=== PATIENT | female | born 2000 | race Caucasian/White ===

== ENCOUNTER 2021-09-13 11:05 | Emergency (ER) | payer SELFPAY | END 2021-09-13 13:19 | disposition home or self-care (01) | LOC: JD.ED 11:05 | DX: R42 Dizziness and giddiness (principal); T50.905A Adverse effect of unspecified drugs, medicaments and biological substances, initial encounter; Z88.0 Allergy status to penicillin; Z91.030 Bee allergy status | CPT/HCPCS: 99283 ==

== ENCOUNTER 2021-09-15 07:52 | Emergency (ER) | payer SELFPAY | END 2021-09-15 11:06 | disposition home or self-care (01) | LOC: JD.ED 07:52 | DX: R11.2 Nausea with vomiting, unspecified (principal); E66.9 Obesity, unspecified; Z68.34 Body mass index [BMI] 34.0-34.9, adult; Z88.0 Allergy status to penicillin; Z91.030 Bee allergy status | CPT/HCPCS: 36415; 80053; 83690; 85025; 99283; 99284 ==

== ENCOUNTER 2021-09-15 18:01 | Emergency (ER) | payer SELFPAY | END 2021-09-15 20:20 | disposition home or self-care (01) | LOC: JD.ED 18:01 | DX: R11.2 Nausea with vomiting, unspecified (principal); E66.9 Obesity, unspecified; Z68.34 Body mass index [BMI] 34.0-34.9, adult; Z88.0 Allergy status to penicillin; Z91.030 Bee allergy status | CPT/HCPCS: 36415; 84702; 99283 ==

== ENCOUNTER 2021-09-23 08:03 | Emergency (ER) | payer SELFPAY | END 2021-09-23 08:33 | disposition home or self-care (01) | LOC: JD.ED 08:03 | DX: G56.02 Carpal tunnel syndrome, left upper limb (principal); E66.9 Obesity, unspecified; Z88.0 Allergy status to penicillin; Z91.030 Bee allergy status; Z68.33 Body mass index [BMI] 33.0-33.9, adult | CPT/HCPCS: 99282; 99283 ==

== ENCOUNTER 2021-10-19 17:34 | Emergency (ER) | payer SELFPAY ==
[2021-10-19] MEDS ORDERED: Sodium Chloride 0.9% 10 ML Syringe FLUSH PRN (18:03)
== END 2021-10-19 20:36 | disposition home or self-care (01) ==
LOC: JD.ED 17:34
DX: O20.0 Threatened abortion (principal); J45.909 Unspecified asthma, uncomplicated; E66.9 Obesity, unspecified; Z68.34 Body mass index [BMI] 34.0-34.9, adult; Z3A.01 Less than 8 weeks gestation of pregnancy; Z86.16 Personal history of COVID-19; Z88.0 Allergy status to penicillin; Z91.030 Bee allergy status
CPT/HCPCS: 76817; 76817-26; 99283; 99284-25

== ENCOUNTER 2021-10-20 13:19 | Emergency (ER) | payer SELFPAY | END 2021-10-20 16:55 | disposition home or self-care (01) | LOC: JD.ED 13:19 → SUPCPDRO 13:19 → JD.ED 16:55 | DX: O03.9 Complete or unspecified spontaneous abortion without complication (principal); E66.9 Obesity, unspecified; Z68.34 Body mass index [BMI] 34.0-34.9, adult; Z88.0 Allergy status to penicillin; Z91.030 Bee allergy status; Z86.16 Personal history of COVID-19 | CPT/HCPCS: 36415; 84702; 85025; 86900; 86901; 99284 ==

== ENCOUNTER 2021-11-02 22:45 | Emergency (ER) | payer SELFPAY | END 2021-11-02 23:33 | LOC: JD.ED 22:45 | DX: Z53.21 Procedure and treatment not carried out due to patient leaving prior to being seen by health care provider (principal) ==

== ENCOUNTER 2021-11-06 19:32 | Emergency (ER) | payer SELFPAY ==
[2021-11-06] MEDS ORDERED: LORazepam 0.5 MG Tab PO ONE (19:58)
== END 2021-11-06 21:41 | disposition home or self-care (01) ==
LOC: JD.ED 19:32
DX: F41.0 Panic disorder [episodic paroxysmal anxiety] (principal); F43.12 Post-traumatic stress disorder, chronic; J45.909 Unspecified asthma, uncomplicated; E66.9 Obesity, unspecified; Z68.34 Body mass index [BMI] 34.0-34.9, adult; Z86.16 Personal history of COVID-19; Z79.899 Other long term (current) drug therapy; Z88.0 Allergy status to penicillin; Z91.030 Bee allergy status
CPT/HCPCS: 99283; A9270; 99282

== ENCOUNTER 2021-11-19 16:01 | Emergency (ER) | payer SELFPAY ==
[2021-11-19] MEDS ORDERED: Acetaminophen 325 MG Tab PO ONE (16:57)
== END 2021-11-19 18:17 | disposition home or self-care (01) ==
LOC: JD.ED 16:01
DX: S99.911A Unspecified injury of right ankle, initial encounter (principal); J45.909 Unspecified asthma, uncomplicated; F17.210 Nicotine dependence, cigarettes, uncomplicated; E66.9 Obesity, unspecified; Z68.34 Body mass index [BMI] 34.0-34.9, adult; Z86.16 Personal history of COVID-19; Z79.899 Other long term (current) drug therapy; Z91.030 Bee allergy status; Z88.0 Allergy status to penicillin
CPT/HCPCS: 73610; 73630; 87651; 99283; A9270

== ENCOUNTER 2021-11-20 10:18 | Emergency (ER) | payer SELFPAY ==
[2021-11-20] MEDS ORDERED: Albuterol 6.7 GM Inhaler INH ONE (10:31)
== END 2021-11-20 12:07 | disposition home or self-care (01) ==
LOC: JD.ED 10:18
DX: U07.1 COVID-19 (principal); J40 Bronchitis, not specified as acute or chronic; E66.9 Obesity, unspecified; Z68.36 Body mass index [BMI] 36.0-36.9, adult; Z88.0 Allergy status to penicillin; Z91.030 Bee allergy status
CPT/HCPCS: 71045; 94640; 99283; A9270

== ENCOUNTER 2021-11-20 20:43 | Emergency (ER) | payer SELFPAY ==
[2021-11-20] MEDS ORDERED: Ondansetron 4 MG Tab.DIS PO ONE (21:25)
== END 2021-11-20 21:40 | disposition home or self-care (01) ==
LOC: JD.ED 20:43
DX: U07.1 COVID-19 (principal); R11.2 Nausea with vomiting, unspecified; J45.909 Unspecified asthma, uncomplicated; E66.9 Obesity, unspecified; Z68.30 Body mass index [BMI] 30.0-30.9, adult; Z87.891 Personal history of nicotine dependence; Z79.899 Other long term (current) drug therapy; Z88.0 Allergy status to penicillin; Z91.030 Bee allergy status; Z86.16 Personal history of COVID-19
CPT/HCPCS: 99283; A9270

== ENCOUNTER 2021-11-21 17:09 | Emergency (ER) | payer SELFPAY ==
[2021-11-21] MEDS ORDERED: Codeine/Promethazine 10-6.25 MG/5 ML Syrup 5 ML UD Cup PO ONE (17:57)
== END 2021-11-21 18:53 | disposition home or self-care (01) ==
LOC: JD.ED 17:09
DX: U07.1 COVID-19 (principal); E66.9 Obesity, unspecified; Z68.33 Body mass index [BMI] 33.0-33.9, adult; Z88.0 Allergy status to penicillin; Z91.030 Bee allergy status; Z86.16 Personal history of COVID-19
CPT/HCPCS: 71045; 99283; A9270; 99284

== ENCOUNTER 2021-12-18 17:53 | Emergency (ER) | payer MEDICAID | END 2021-12-18 19:22 | disposition home or self-care (01) | LOC: JD.ED 17:53 | DX: S93.402A Sprain of unspecified ligament of left ankle, initial encounter (principal); E66.9 Obesity, unspecified; Z68.30 Body mass index [BMI] 30.0-30.9, adult; Z88.0 Allergy status to penicillin; Z91.030 Bee allergy status; Z86.16 Personal history of COVID-19; Z87.891 Personal history of nicotine dependence | CPT/HCPCS: 99283 ==

== ENCOUNTER 2022-01-30 10:43 | Emergency (ER) | payer MEDICAID ==
[2022-01-30 12:23] LABS: ESTIMATED GFR 92 mL/min (>60)
== END 2022-01-30 12:50 | disposition home or self-care (01) ==
LOC: JD.ED 10:43
DX: R07.89 Other chest pain (principal); J45.909 Unspecified asthma, uncomplicated; E66.9 Obesity, unspecified; Z68.30 Body mass index [BMI] 30.0-30.9, adult; Z88.1 Allergy status to other antibiotic agents; Z91.030 Bee allergy status; Z91.018 Allergy to other foods; Z79.899 Other long term (current) drug therapy; Z86.16 Personal history of COVID-19; Z20.822 Contact with and (suspected) exposure to COVID-19
CPT/HCPCS: 36415; 80053; 84484; 84703; 85025; 85379; 93005; 93010; 99284; 99285; U0002

== ENCOUNTER 2022-02-04 21:47 | Emergency (ER) | payer MEDICAID | END 2022-02-05 03:30 | disposition home or self-care (01) | LOC: JD.ED 21:47 | DX: H93.13 Tinnitus, bilateral (principal); J45.909 Unspecified asthma, uncomplicated; E66.9 Obesity, unspecified; Z68.30 Body mass index [BMI] 30.0-30.9, adult; Z88.1 Allergy status to other antibiotic agents; Z91.030 Bee allergy status; Z91.018 Allergy to other foods; Z79.899 Other long term (current) drug therapy; Z86.16 Personal history of COVID-19 | CPT/HCPCS: 99282; 99284 ==

== ENCOUNTER 2022-03-05 16:20 | Emergency (ER) | payer MEDICAID | END 2022-03-05 19:20 | disposition home or self-care (01) | LOC: JD.ED 16:20 | DX: R07.89 Other chest pain (principal); E16.2 Hypoglycemia, unspecified; J45.909 Unspecified asthma, uncomplicated; E66.9 Obesity, unspecified; Z68.30 Body mass index [BMI] 30.0-30.9, adult; Z88.0 Allergy status to penicillin; Z91.030 Bee allergy status; Z91.018 Allergy to other foods; Z79.899 Other long term (current) drug therapy; Z86.16 Personal history of COVID-19 | CPT/HCPCS: 36415; 80053; 82947; 85025; 93005; 93010; 99284; 99285 ==